=== PATIENT | female | born 1985 ===

== ENCOUNTER 2016-06-03 09:51 | Emergency (ER) | payer BC ==
--- NOTE | 2016-06-09 16:06 | ER ---
ADMIT: 06/03/2016 RM/LOC: ER [facility] MR#: [id number] [address] [place] [address] Emergency Room Report SEX: F AGE: 30 : 1985 DATE: 06/03/2016 HISTORY OF PRESENT ILLNESS: The patient is a 30-year-old female, presents to emergency room complaining of abdominal pain for about 7 days. She states it is still present but worse today. She points to the right lower quadrant aspect. She has some loose stool about 2 days ago and she has history of asthma. She is pretty anxious about this. See T-sheet for medications and allergies. PHYSICAL EXAMINATION: VITAL SIGNS: Vitals are within normal limits. GENERAL: Alert and moderately anxious. ABDOMEN: Tenderness in the right lower quadrant but it is a little bit more higher at the hypogastric area. BACK: Normal inspection. SKIN: Good color and turgor, intact. EXTREMITIES: Nontender. Oriented x4. Mood and affect appropriate, although she is a bit anxious. LABORATORY DATA: Her lab shows white count that is normal with hemoglobin of 11.2. Chemistry normal. UA; wbc's 5, leukocytes 1+ and culture sensitivity pending. Urine is negative. Ultrasound free fluid, [address] of the abdomen was negative, still saw the free fluid underneath the right ovary. Appendix looks good. The patient was advised of the findings. She is ready to go home. CLINICAL IMPRESSION: Ovarian cyst, simple rupture and cystitis right lower quadrant abdominal pain. She was given Ultram and Bactrim and encouraged to follow up with the primary provider for visit and followup. ZOE Smith / Scott Florence MD / ivonne JOB #: [id number] CC: Scott Florence MD, Attending Physician Lana Boo MD, Family Physician
== END 2016-06-03 14:00 | disposition home or self-care (01) ==
LOC: ER 09:51
DX: N30.90 Cystitis, unspecified without hematuria (principal); N83.201 Unspecified ovarian cyst, right side; R10.31 Right lower quadrant pain; J45.909 Unspecified asthma, uncomplicated; Z79.899 Other long term (current) drug therapy

== ENCOUNTER 2016-08-11 09:23 | Day surgery (SDC) | payer OTHER ==
[~2016-08-11] VITALS: Ht 165.1 cm; Wt 93.6 kg
--- NOTE | 2016-08-12 08:10 | OR ---
ADMIT: 08/11/2016 RM/LOC: [facility] MR#: [id number] [address] [place] [address] Operative/Delivery Room Report SEX: F AGE: 31 : 1985 SURGERY DATE: 08/11/2016 SURGEON: Luann Maradiaga MD PREPROCEDURAL DIAGNOSES: 1. Lumbar spondylosis. 2. Lumbago. POSTPROCEDURAL DIAGNOSES: 1. Lumbar spondylosis. 2. Lumbago. PROCEDURE PERFORMED: Bilateral lumbar facet injections at L3-L4, L4-L5, and L5-S1 levels. INDICATIONS FOR PROCEDURE: The patient is a pleasant female with history of chronic low back pain secondary to above-mentioned diagnoses, comes here for planned lumbar facet injection. ANESTHESIA: Local without sedation. ESTIMATED BLOOD LOSS: Zero. COMPLICATIONS: None immediately evident. DESCRIPTION OF PROCEDURE: After the patient was seen in the preoperative area, vitals signs were taken. Prior to the procedure, the risks, benefits, and alternative therapies were discussed at length. Patient consent was obtained and updated. The patient was taken to the fluoroscopy suite and placed on the fluoroscopy table in the prone position. Pressure points were padded to comfort, monitors applied, and a timeout performed. The lumbosacral area was prepped sterilely using ChloraPrep. C-arm fluoroscopy was then brought in to identify facet joints at L3-L4, L4-L5, and L5-S1 on the right side. Lidocaine 1% plain approximately 1 mL was used to anesthetize the skin and underlying subcutaneous tissue at each level. At each level, a 3.5- inch 22-gauge spinal needle was used. The needle was then advanced to make contact with the superior articular facet at each level. The needle was then walked off and placed into a joint at each level. Isovue-300 0.5 mL was instilled at each level, which showed excellent intra-articular spread. The ADMIT: 08/11/2016 RM/LOC: [facility] MR#: [id number] [address] [place] [address] [place] [address] Operative/Delivery Room Report SEX: F AGE: 31 : 1985 patient did receive 0.5 mL of 0.25% Marcaine with approximately 40 mg of Depo- Medrol. The patient had reproduction of her typical pain at each level. The procedure was then repeated on the left. The patient tolerated the procedure well. The patient was brought to PACU where she recovered nicely without any complications. PLAN: The patient was examined after 20 minutes and had 50% reduction of pain. Range of motion, mainly extension, from 10 degrees to 20 degrees of extension. Discharge instructions were given, followup scheduled. The patient was discharged home with a funeral driver. Luann Maradiaga MD/ ivonne JOB #: [id number] CC: Luann Maradiaga, Attending Physician Lana Boo, Family Physician
== END 2016-08-11 10:55 | disposition home or self-care (01) ==
LOC: SSS 09:23
PROC: BR16YZZ Fluoroscopy of Lumbar Facet Joint(s) using Other Contrast (ICD-10-PCS; principal; 2016-08-11)
PROC: 3E0U3BZ Introduction of Anesthetic Agent into Joints, Percutaneous Approach (ICD-10-PCS; principal; 2016-08-11)
PROC: 3E0U33Z Introduction of Anti-inflammatory into Joints, Percutaneous Approach (ICD-10-PCS; principal; 2016-08-11)
DX: G89.29 Other chronic pain (principal); M47.816 Spondylosis without myelopathy or radiculopathy, lumbar region; Z79.899 Other long term (current) drug therapy